=== PATIENT | female | born 2000 | race African-American/Black ===

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

== ENCOUNTER 2022-01-27 20:44 | Emergency (ER) | payer BC, OTHER ==
[~2022-01-27] VITALS: Ht 157.5 cm; Wt 81.2 kg
[2022-01-27] MEDS ORDERED: SERTRALINE HYDR50 MG PO (21:10)
[2022-01-27 22:45] VITALS: BP 121/88; TEMP 98.7
== END 2022-01-27 22:45 | disposition home or self-care (01) ==
LOC: ED 20:44
DX: F41.0 Panic disorder [episodic paroxysmal anxiety] (principal); G44.209 Tension-type headache, unspecified, not intractable
CPT/HCPCS: 80307; 96372; 99282; J2060

== ENCOUNTER 2023-01-07 16:53 | Outpatient (CLI) | payer BC, OTHER ==
[~2023-01-07 16:53] MED LIST: SERTRALINE HYDR50 MG PO
[2023-01-07 17:15] LABS: POTASSIUM 4.3 mmol/L (3.6-5.2)
== END 2023-01-07 18:50 | disposition home or self-care (01) ==
LOC: LABW 16:53
PROVIDERS: ATTEND Nurse Practitioner Family
DX: R10.12 Left upper quadrant pain (principal)
CPT/HCPCS: 36415; 80053; 82150; 83690